=== PATIENT | female | born 1995 | race Two or more races ===

== ENCOUNTER 2017-05-20 11:20 | Emergency (ER) | payer MEDICAID ==
[~2017-05-20] VITALS: Ht 160 cm; Wt 67.1 kg
[2017-05-20 11:26] VITALS: BP 123/74
[2017-05-20] MEDS ORDERED: DEXAMETHASONE SOD PHOSPHATE 10 MG/ML VIAL IM ONE (12:30)
[2017-05-20] MEDS ORDERED: CEFTRIAXONE 1 G VIAL IM ONE (12:30)
[2017-05-20] MEDS ORDERED: DEXAMETHASONE SOD PHOSPHATE 10 MG/ML VIAL ONE (12:35)
--- NOTE | 2017-05-20 12:44 | NUR ---
Patient discharged to home in stable condition. Written and verbal after care instructions given. Patient verbalizes understanding of instruction.
== END 2017-05-20 12:45 | disposition home or self-care (01) ==
LOC: ER 11:23
DX: J02.0 Streptococcal pharyngitis (principal)
CPT/HCPCS: 96372; 99284; A4606; J1100; Z7610

== ENCOUNTER 2017-06-13 12:45 | Emergency (ER) | payer BC ==
[~2017-06-13] VITALS: Ht 160 cm; Wt 65.8 kg
--- NOTE | 2017-06-13 16:15 | NUR ---
PRESENTS TO ER C/O SORE THROAT X 2 DAYS. A/OX 4. BREATHING EVEN AND UNLABORED. NO SOB. VITALS STABLE. SAFETY AND COMFORT MEASURES IN PLACE. AWAITING MD ORDERS.
[2017-06-13] MEDS ORDERED: IBUPROFEN 600 MG TABLET PO ONE ×2 (17:00→17:05)
[2017-06-13] MEDS ORDERED: IV NS 0.9% 1,000 ML BAG IV ONE (17:00)
[2017-06-13] MEDS ORDERED: ONDANSETRON HCL/PF 4 MG/2 ML VIAL IVP ONE (17:00)
[2017-06-13] MEDS ORDERED: MORPHINE SULFATE INJ 2 MG/ML DISP.SYRIN IV ONE (17:00)
[2017-06-13] MEDS ORDERED: ONDANSETRON HCL/PF 4 MG/2 ML VIAL ONE (17:05)
[2017-06-13] MEDS ORDERED: MORPHINE SULFATE INJ 4 MG/ML DISP.SYRIN ONE (17:05)
[2017-06-13 17:21] LABS: BASOPHILS # (AUTO) 0.2 /CMM (0.0-0.2); BASOPHILS % (AUTO) 1.8 % (0.0-2.0); EOSINOPHILS # (AUTO) 0.1 /CMM (0.0-0.7); EOSINOPHILS % (AUTO) 0.9 % (0.0-6.0); HEMATOCRIT 41 % (33-45); HEMOGLOBIN 14.5 g/dL (11.5-14.8); LYMPHOCYTES # (AUTO) 0.9 /CMM (0.8-4.8); LYMPHOCYTES % (AUTO) 8.9 % (20.0-44.0); MEAN CORPUSCULAR HEMOGLOBIN 30 PG (26.0-33.0); MEAN CORPUSCULAR HGB CONC 35 g/dl (31.0-36.0); MEAN CORPUSCULAR VOLUME 86 fL (82-100); MONOCYTES # (AUTO) 0.8 /CMM (0.1-1.30); MONOCYTES % (AUTO) 7.5 % (2.0-12.0); NEUTROPHILS # (AUTO) 8.2 /CMM (1.8-8.9); NEUTROPHILS % (AUTO) 80.9 % (43.0-81.0); PLATELET COUNT (AUTO) 184 /CMM (150-450); RDW COEFFICIENT OF VARIATION 12.1 (11.5-15.0); RED BLOOD CELL COUNT(AUTO) 4.79 MIL/uL (4.0-5.2); WHITE BLOOD COUNT (AUTO) 10.2 K/uL (4.3-11.0)
[2017-06-13] MEDS ORDERED: DEXAMETHASONE SOD PHOSPHATE 10 MG/ML VIAL ONE (17:25)
[2017-06-13 17:27] LABS: CALCIUM, SERUM 9.1 mg/dL (8.5-10.1); CREATININE 0.6 mg/dL (0.6-1.3); POTASSIUM 3.8 mmol/L (3.5-5.1)
[2017-06-13] MEDS ORDERED: DEXAMETHASONE SOD PHOSPHATE 4 MG/ML VIAL IV ONE ×2 (17:30)
[2017-06-13] MEDS ORDERED: PIPERACILLIN /TAZOBACTAM 3.375 G in IV D5W 50 ML IV ONE (17:30)
[2017-06-13 17:32] LABS: INR 0.95 (0.87-1.13); PROTHROMBIN TIME 9.9 SECS (9.5-12.7)
--- NOTE | 2017-06-13 17:45 | NUR ---
PATIENT CONSENTED TO NEEDLE ASPIRATION OF PERITONSILAR ABSCESS, CONSENT FORM PLACED IN CHART.
[2017-06-13] MEDS ORDERED: PHENOL-PHENOLATE CHLORASEPTIC 177 ML SPRAY MM ONE (18:00)
[2017-06-13] MEDS ORDERED: TETRACAINE/BENZOCAINE/BUTAMBEN 56 GM SPRAY TP ONE (18:00)
--- NOTE | 2017-06-13 18:00 | NUR ---
AT BEDSIDE FOR NEEDLE ASPIRATION OF PERITONSILAR ABSCESS.
[2017-06-13 18:53] VITALS: BP 121/70
--- NOTE | 2017-06-13 18:54 | NUR ---
IV removed. Catheter intact and site benign. Pressure and 4x4 applied to site. No bleeding noted. Patient discharged to home in stable condition. Written and verbal after care instructions given. Patient verbalizes understanding of instruction.
== END 2017-06-13 18:54 | disposition home or self-care (01) ==
LOC: ER 12:48
DX: J36 Peritonsillar abscess (principal); J45.909 Unspecified asthma, uncomplicated; Z91.013 Allergy to seafood
CPT/HCPCS: 36415; 42700; 80048; 85025; 85730; 96361; 96365; 96375; 99284; A4606; J1100; J2270; J2405; J2543; J7030; J7060; Z7610

== ENCOUNTER 2017-06-16 07:15 | Emergency (ER) | payer BC ==
[~2017-06-16] VITALS: Ht 160 cm; Wt 65.8 kg
--- NOTE | 2017-06-16 07:25 | NUR ---
a/ox4, pt came to er with c/o sorethroat x wednesday. 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 pt noted with low grade fever. tachycardic. assisted to ed bed 09. rr even and unlabored. skn is warm and non diaphoretic. Pending er md evaluation
[2017-06-16] MEDS ORDERED: DEXAMETHASONE SOD PHOSPHATE 10 MG/ML VIAL IV ONE (07:30)
[2017-06-16] MEDS ORDERED: IV NS 0.9% 1,000 ML BAG IV ONE (07:30)
[2017-06-16] MEDS ORDERED: KETOROLAC TROMETHAMINE INJ 30 MG/ML VIAL IV ONE (07:30)
[2017-06-16] MEDS ORDERED: CLINDAMYCIN 600 MG in IV D5W 100 ML IV ONE (07:30)
[2017-06-16] MEDS ORDERED: DEXAMETHASONE SOD PHOSPHATE 10 MG/ML VIAL ONE (07:44)
[2017-06-16] MEDS ORDERED: KETOROLAC TROMETHAMINE 15 MG/ML VIAL ONE (07:45)
[2017-06-16 08:00] LABS: CALCIUM, SERUM 8.7 mg/dL (8.5-10.1); CREATININE 0.8 mg/dL (0.6-1.3); POTASSIUM 3.5 mmol/L (3.5-5.1)
[2017-06-16] MEDS ORDERED: CT SWABBABLE VALVE TRANS SET 1 EA INFUS.SET MC ONE (09:43)
[2017-06-16] MEDS ORDERED: IV NS 0.9% 250 ML IV ONE (09:43)
[2017-06-16] MEDS ORDERED: IOHEXOL-300 100 ML VIAL IV ONE (09:43)
--- NOTE | 2017-06-16 11:23 | NUR ---
IV removed. Catheter intact and site benign. Pressure and 4x4 applied to site. No bleeding noted.Patient discharged to home in stable condition. Written and verbal after care instructions given. Patient verbalizes understanding of instruction.
[2017-06-16 11:24] VITALS: BP 115/69
== END 2017-06-16 11:26 | disposition home or self-care (01) ==
LOC: ER 07:17
DX: J03.90 Acute tonsillitis, unspecified (principal); J45.909 Unspecified asthma, uncomplicated; Z91.013 Allergy to seafood
CPT/HCPCS: 36415; 70491; 80048; 84703; 96361; 96365; 96375; 99285; A4606; J1100; J1885; J3490; J7030; J7050; J7060; Q9967; Z7610

== ENCOUNTER 2017-06-18 07:42 | Inpatient (IN) | payer BC, OTHER ==
[~2017-06-18] VITALS: Ht 160 cm; Wt 61.7 kg
--- NOTE | 2017-06-18 00:58 | NUR ---
GARRET NOTES RECEIVED PT FROM [employer] 06/18/2017 VIA [facility] M/S AT 2100. PT IN STABLE CONDITION, NO S/S OF DISTRESS. HEAD TO TOE SKIN ASSESSMENT PT REFUSES TO REMOVED PANTS AND SHIRT DESPITE RISKS AND BENEFITS OFFERED 3 TIMES STILL REFUSES M[employer]D [employer] C[employer] TECHNICIAN MADE AWARE. UNABLE TO ASSESS ENTIRE BODY PER PT SHE DOESNT HAVE ANY WOUNDS OTHER THAN HER FACE AND HER NECK PT STATED THAT SHE HAS HER PERIOD SAFETY MEASURES ARE IN PLACE, CALL LIGHT IS IN REACH. WILL CONTINUE TO MONITOR. ON ATB NO A/R NOTED Addendum: 06/19/17 at 0103 by NATHAN OLIVER RN THIS ENTRY DOCUMENTATION IS FOR 06/19/16 0102 Addendum: 06/19/17 at 0104 by NATHAN OLIVER RN ADDENDUM: CORRECTION: THIS ENTRY DOCUMENTATION IS FOR 06/19/2017 AT 0102
[2017-06-18 10:13] LABS: BASOPHILS % (AUTO) 0.4 % (0.0-2.0); EOSINOPHILS % (AUTO) 0.1 % (0.0-6.0); HEMATOCRIT 41 % (33-45); LYMPHOCYTES # (AUTO) 1.2 /CMM (0.8-4.8); LYMPHOCYTES % (AUTO) 11.6 % (20.0-44.0); MEAN CORPUSCULAR HEMOGLOBIN 29 PG (26.0-33.0); MEAN CORPUSCULAR HGB CONC 35 g/dl (31.0-36.0); MEAN CORPUSCULAR VOLUME 85 fL (82-100); MONOCYTES # (AUTO) 0.9 /CMM (0.1-1.30); NEUTROPHILS # (AUTO) 8.2 /CMM (1.8-8.9); NEUTROPHILS % (AUTO) 78.9 % (43.0-81.0); PLATELET COUNT (AUTO) 213 /CMM (150-450); RDW COEFFICIENT OF VARIATION 11.7 (11.5-15.0); WHITE BLOOD COUNT (AUTO) 10.3 K/uL (4.3-11.0)
[2017-06-18 11:11] LABS: MONOTEST NEGATIVE (NEGATIVE)
[2017-06-18 12:31] LABS: APPEARANCE,URINE Clear (CLEAR); BILIRUBIN,URINE Negative (NEGATIVE); BLOOD, URINE Large Ery/uL (NEGATIVE); COLOR,URINE Yellow (YELLOW); KETONES,URINE Trace (NEGATIVE); LEUKOCYTE ESTERASE ,URINE Small (NEGATIVE); NITRITE, URINE Negative (NEGATIVE); PROTEIN,URINE Negative (NEGATIVE); UGLUCOSE Negative (NEGATIVE); UROBILINOGEN,URINE 0.2 EU/dL (0.2)
[2017-06-18 12:38] LABS: BACTERIA,URINE Rare /HPF (None Seen); RBC,URINE 51-80 /HPF (0-2); SQUAMOUS EPITHELIAL CELL,UR Few /HPF (None Seen)
[2017-06-18] MEDS ORDERED: AZITHROMYCIN 250 MG TABLET PO ONE (13:30)
[2017-06-18] MEDS ORDERED: PENICILLIN G BENZATHINE 2.4 MMU/4 ML ML IM ONE ×3 (13:30→15:57)
[2017-06-18] MEDS ORDERED: IBUP-1955 PO (14:51)
[2017-06-18] MEDS ORDERED: CLIN300C11 PO (14:51)
[2017-06-18] MEDS ORDERED: AZITHROMYCIN 250 MG TABLET ONE ×2 (15:49→15:56)
[2017-06-18] MEDS ORDERED: HYDROCODONE/APAP 10/325MG 1 EA TABLET PO PRN (16:00)
[2017-06-18] MEDS ORDERED: ZOLPIDEM TARTRATE 5 MG TABLET PO PRN (16:00)
[2017-06-18] MEDS ORDERED: Z GUARD REMEDY 2 OZ OINT TP PRN (16:00)
[2017-06-18] MEDS ORDERED: ACETAMINOPHEN 325 MG TABLET PO PRN (16:00)
[2017-06-18] MEDS ORDERED: MAGNESIUM HYDROXIDE 30 ML UDC PO PRN (16:00)
[2017-06-18] MEDS ORDERED: MAG HYDROX/AL HYDROX/SIMETH 30 ML UDC PO PRN (16:00)
[2017-06-18] MEDS ORDERED: HYDROCODONE/APAP 5/325MG 1 EACH TABLET PO PRN (16:00)
[2017-06-18] MEDS ORDERED: ONDANSETRON HCL/PF 4 MG/2 ML VIAL IVP PRN (16:00)
--- NOTE | 2017-06-18 20:45 | NUR ---
REPORT GIVEN TO [place]. PT AWAITING TRANSFER TO FLOOR.
[2017-06-18 21:05] VITALS: BP 107/66
[2017-06-18] MEDS ORDERED: CEFTRIAXONE 1 G VIAL ONE (21:52)
[2017-06-18] MEDS: CEFTRIAXONE 1 G in IV D5W 50 ML IV SCH (22:08)
[2017-06-18] MEDS ORDERED: ACYCLOVIR IV 1 GM/20 ML VIAL IV ONE (23:03)
[2017-06-18] MEDS: ACYCLOVIR IV SCH (23:54)
[2017-06-18] MEDS: D5W IV SCH (23:54)
--- NOTE | 2017-06-19 01:02 | NUR ---
RN NOTES RECEIVED PT FROM [facility] [facility] 06/18/2017 VIA [facility] ADMIT M/S AT 2100. PT IN STABLE CONDITION, NO S/S OF DISTRESS. 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 UNABLE TO ASSESS ENTIRE BODY PER PT SHE DOESNT HAVE ANY WOUNDS OTHER THAN HER FACE AND HER NECK PT STATED THAT SHE HAS HER PERIOD SAFETY MEASURES ARE IN PLACE, CALL LIGHT IS IN REACH. WILL CONTINUE TO MONITOR. ON ATB NO A/R NOTED
[2017-06-19] MEDS: D5W IV SCH ×3 (05:06→22:41)
[2017-06-19] MEDS: ACYCLOVIR IV SCH ×3 (05:06→22:41)
--- NOTE | 2017-06-19 06:30 | NUR ---
MS RN CLOSING NOTES AWAKE IN BED, RESPIRATIONS EVEN AND UNLABORED. NOT IN S/S DISTRESS. 02 SAT WNL STABLE CONDITION. KEPT CLEAN AND DRY AND COMFORTABLE, ALL NURSING CARE RENDERED. NEEDS ATTENDED AND ANTICIPATED, FREQUENT VISUAL CHECK DONE FOR SAFETY EVERY 2 HOURS. ON LOW BED AT ALL TIMES TO ENSURE SAFETY. SAFE HAZARD FREE ENVIRONMENT PROVIDED. CALL LIGHT WITHIN EASY TO REACH. WILL ENDORSE NEXT SHIFT CONTINUITY OF CARE
--- NOTE | 2017-06-19 07:30 | NUR ---
RN OPENING NOTES RECEIVED PT. IN BED A&OX4. BREATHING UNLABORED, AND EVENLY ON ROOM AIR. NO S/S OF ACUTE DISTRESS. IV FLUIDS AT BEDSIDE. BED IS IN LOWEST, AND LOCKED POSITION. W SIDE RAILS UP, AND INSTRUCTED PT. TO USE CALL LIGHT FOR ASSISTANCE. ALL NEEDS MET. WILL CONTINUE TO ASSESS AND MONITOR.
[2017-06-19 08:00] VITALS: BP_SYST 111; BP_SYST 139; BP_DIAS 63; BP_DIAS 72
[2017-06-19 08:01] LABS: BASOPHILS % (AUTO) 0.2 % (0.0-2.0); EOSINOPHILS % (AUTO) 0.1 % (0.0-6.0); HEMATOCRIT 38 % (33-45); HEMOGLOBIN 13.3 g/dL (11.5-14.8); LYMPHOCYTES # (AUTO) 1.6 /CMM (0.8-4.8); LYMPHOCYTES % (AUTO) 17.8 % (20.0-44.0); MEAN CORPUSCULAR HEMOGLOBIN 30 PG (26.0-33.0); MEAN CORPUSCULAR HGB CONC 35 g/dl (31.0-36.0); MEAN CORPUSCULAR VOLUME 85 fL (82-100); MONOCYTES # (AUTO) 1.1 /CMM (0.1-1.30); MONOCYTES % (AUTO) 12.2 % (2.0-12.0); NEUTROPHILS # (AUTO) 6.1 /CMM (1.8-8.9); NEUTROPHILS % (AUTO) 69.7 % (43.0-81.0); PLATELET COUNT (AUTO) 198 /CMM (150-450); RDW COEFFICIENT OF VARIATION 12.6 (11.5-15.0); RED BLOOD CELL COUNT(AUTO) 4.49 MIL/uL (4.0-5.2); WHITE BLOOD COUNT (AUTO) 8.8 K/uL (4.3-11.0)
[2017-06-19 08:20] LABS: ALBUMIN 3.4 g/dL (3.4-5.0); BILIRUBIN,TOTAL 0.3 mg/dL (0.2-1.0); CALCIUM, SERUM 8.7 mg/dL (8.5-10.1); CREATININE 0.7 mg/dL (0.6-1.3); MAGNESIUM 2.3 mg/dL (1.8-2.4); PHOSPHORUS 3.8 mg/dL (2.5-4.9); POTASSIUM 3.7 mmol/L (3.5-5.1)
[2017-06-19 08:29] LABS: THYROID STIMULATING HORMONE 1.572 uIU/mL (0.358-3.74)
--- NOTE | 2017-06-19 09:00 | NUR ---
RN NOTES PT. C/O DISCOMFORT, IRRITATION, ITCHING AND BURNING ON URINATION. NOTIFIED MEDICINE TECH, AND ORDER WAS GIVEN FOR A URINE ANALYSIS.
--- NOTE | 2017-06-19 10:00 | NUR ---
RN NOTES PT. C/O LEFT WRIST TENDERNESS AT IV ACCESS SITE. IV WAS REMOVED AND A NEW IV WAS INSERTED ON RIGHT FOREARM GAUGE 22. IV IS PATENT AND FLUSHED WITH NORMAL SALINE.
--- NOTE | 2017-06-19 10:15 | NUR ---
RN NOTES URINE COLLECTED CLEAN CATCH BY PT. FOR URINE ANALYSIS WITHOUT COMPLICATIONS. CALLED LAB TO NOTIFY URINE SAMPLE IS AVAILABLE.
[2017-06-19 11:32] LABS: APPEARANCE,URINE CLEAR (CLEAR); BILIRUBIN,URINE NEGATIVE (NEGATIVE); BLOOD, URINE 2+ Ery/uL (NEGATIVE); COLOR,URINE YELLOW (YELLOW); KETONES,URINE NEGATIVE (NEGATIVE); LEUKOCYTE ESTERASE ,URINE 1+ (NEGATIVE); NITRITE, URINE NEGATIVE (NEGATIVE); PROTEIN,URINE NEGATIVE (NEGATIVE); UGLUCOSE NEGATIVE (NEGATIVE); UROBILINOGEN,URINE 0.2 EU/dL (0.2)
[2017-06-19 11:56] LABS: BACTERIA,URINE Rare /HPF (None Seen); SQUAMOUS EPITHELIAL CELL,UR Few /HPF (None Seen)
[2017-06-19 16:00] VITALS: BP 109/67
--- NOTE | 2017-06-19 19:45 | NUR ---
RN CLOSING NOTES PT. IN BED A&OX4. BREATHING UNLABORED, AND EVENLY ON ROOM AIR. NO S/S OF ACUTE DISTRESS. IV FLUIDS AT BEDSIDE. RIGHT FOREARM IV ACCESS IS INTACT. BED IS IN LOWEST, AND LOCKED POSITION. W SIDE RAILS UP, AND INSTRUCTED PT. TO USE CALL LIGHT FOR ASSISTANCE. ALL NEEDS MET. WILL ENDORSE REPORT TO NURSE.
--- NOTE | 2017-06-19 19:50 | NUR ---
RN OPENING NOTES PT RESTING IN BED. MOTHER AT BEDSIDE. NO COMPLAINTS OF PAIN OR SOB AT THIS TIME. PT HAS RIGHT FOREARM IV INTACT AND PATENT. SAFETY PRECAUTIONS IN PLACE. BED IN LOW, LOCKED POSITION AND 2X SIDE RAILS UP. CALL LIGHT WITHIN REACH. WILL CONTINUE TO MONITOR.
--- NOTE | 2017-06-19 19:50 | NUR ---
RN NOTES CALLED DR. DOMINGO TO NOTIFY THAT PT. HAS BEEN C/O DISCOMFORT, IRRITATION, WITH YEAST INFECTION LIKE SYMPTOMS. NEW ORDER WAS GIVEN FOR DIFLUCAN 150 MG PO ONCE.
[2017-06-19 20:00] VITALS: BP 114/68
[2017-06-19] MEDS: CEFTRIAXONE 1 G in IV D5W 50 ML IV SCH (21:03)
[2017-06-19] MEDS ORDERED: FLUCONAZOLE (100 MG) 100 MG TABLET PO ONE (22:30)
[2017-06-20] MEDS: D5W IV SCH ×3 (05:37→20:37)
[2017-06-20] MEDS: ACYCLOVIR IV SCH ×3 (05:37→20:37)
--- NOTE | 2017-06-20 07:10 | NUR ---
RN NOTES PT IS LAYING DOWN IN BED SLEEPING, NO SIGNS OF DISTRESS NOTED. PT ON RA, RESPIRATIONS ARE EVEN AND UNLABORED. IV ON RFA INTACT AND SL. SAFETY MEASURES ARE IN PLACE, CALL LIGHT IS IN REACH. WILL CONTINUE TO MONITOR.
--- NOTE | 2017-06-20 07:32 | NUR ---
RN CLOSING NOTES PT RESTING IN BED. NO COMPLAINTS OF PAIN OR SOB AT THIS TIME. PT HAS RIGHT FOREARM IV INTACT AND PATENT. SAFETY PRECAUTIONS IN PLACE. BED IN LOW, LOCKED POSITION AND 2X SIDE RAILS UP. CALL LIGHT WITHIN REACH. WILL ENDORSE TO DAY SHIFT NURSE FOR CONTINUITY OF CARE.
[2017-06-20 08:00] VITALS: BP 97/53
[2017-06-20] MEDS: LORATADINE 10 MG TABLET PO SCH (08:38)
[2017-06-20 16:00] VITALS: BP 109/65
--- NOTE | 2017-06-20 18:51 | NUR ---
RN NOTES PT IS RESTING IN BED COMFORTABLY, NO SIGNS OF DISTRESS NOTED. PT ON RA, RESPIRATIONS ARE EVEN AND UNLABORED. IV ON L HAND INTACT AND SL. ALL MEDS WERE GIVEN ORDERED AND PT NEEDS MET. PT HAS NO COMPLAINTS OF PAIN. SAFETY MEASURES ARE IN PLACE, CALL LIGHT IS IN REACH. WILL ENDORSE TO [employer]PL[employer]S DIVISION DIRECTOR RN FOR CONTINUITY OF CARE.
--- NOTE | 2017-06-20 19:25 | NUR ---
RN OPENING NOTES RECEIVED PATIENT IN BED, ALERT AND ORIENTED X 4, VERBALLY RESPONSIVE, ABLE TO MAKE NEEDS KNOWN, NOTED WITH NO SOB, BREATHING EVEN AND UNLABORED, IN NO ACUTE DISTRESS, PLACED CALL LIGHT WITHIN REACH. ALL PATIENT'S NEEDS ATTENDED TO. WILL CONTINUE TO MONITOR PT.
[2017-06-20 20:00] VITALS: BP 115/55
[2017-06-20 20:43] VITALS: BP 151/67
[2017-06-20] MEDS ORDERED: DOXYCYCLINE 100 MG in IV D5W 100 ML IV SCH (22:00)
--- NOTE | 2017-06-20 22:35 | NUR ---
RN NOTES RECEIVED NEW ORDERS FROM PHARMACY, PER ID RECOMMENDATION, TO DOSE VANCOMYCIN 1 GM IV X 1 DOSE AND PHARMACY TO CONTINUE DOSING IN THE AM. ALL ORDERS NOTED AND CARRIED OUT.
[2017-06-20] MEDS ORDERED: VANCOMYCIN 1 GM VIAL ONE (23:17)
[2017-06-20] MEDS ORDERED: VANCOMYCIN 1 GM in IV D5W 250 ML IV ONE (23:30)
[2017-06-20] MEDS ORDERED: DOXYCYCLINE 100 MG VIAL ONE (23:45)
--- NOTE | 2017-06-21 04:00 | NUR ---
RN NOTE INSERTED A NEW IV PERIPHERAL LINE G#22 ON PT'S RIGHT HAND. PATIENT TOLERATED PROCEDURE WELL. FLUSHED WITH SALINE, PATENT AND INTACT. WILL CONTINUE TO MONITOR.
[2017-06-21] MEDS: ACYCLOVIR IV SCH ×3 (04:57→20:42)
[2017-06-21] MEDS: D5W IV SCH ×3 (04:57→20:42)
--- NOTE | 2017-06-21 07:25 | NUR ---
RN CLOSING NOTES PATIENT IN BED, ASLEEP BUT EASILY AROUSABLE, ALERT AND ORIENTED X 4, NO SOB NOTED, BREATHING EVEN AND UNLABORED AND IS IN NO ACUTE DISTRESS. ALL PATIENT'S NEEDS ATTENDED TO. BED PLACED IN LOW POSITION AND LOCKED IN PLACE. CALL LIGHT PLACED WITHIN EASY REACH. WILL ENDORSE TO MORNING SHIFT NURSE FOR CONTINUITY OF CARE.
--- NOTE | 2017-06-21 07:35 | NUR ---
RN OPENING NOTES RECEIVED PT. IN BED A&OX4. BREATHING UNLABORED, AND EVENLY ON ROOM AIR. NO S/S OF ACUTE DISTRESS. IV FLUIDS AT BEDSIDE. BED IS IN LOWEST, AND LOCKED POSITION. 2 SIDE RAILS UP, AND INSTRUCTED PT. TO USE CALL LIGHT FOR ASSISTANCE. ALL NEEDS MET. WILL CONTINUE TO ASSESS AND MONITOR.
--- NOTE | 2017-06-21 07:55 | NUR ---
WOUND CARE CONSULT WOUND CARE RECEIVED CONSULT. WILL DEFER TO MD AND ID AT THIS TIME FOR FACIAL BLISTERS. PATIENT WITH DIDI AT 22. DISCUSSED WITH NURSING STAFF.
[2017-06-21 08:00] VITALS: BP 94/58
[2017-06-21] MEDS: LORATADINE 10 MG TABLET PO SCH (09:21)
[2017-06-21] MEDS ORDERED: FEE PK DOSING 1 MIN EA MC ONE (09:46)
[2017-06-21] MEDS ORDERED: PIPERACILLIN /TAZOBACTAM 3.375 G in IV D5W 50 ML IV SCH (10:00)
[2017-06-21 12:08] LABS: *HIV-1 RNA BY PCR <20 copies/mL (.)
[2017-06-21] MEDS: VANCOMYCIN 1 GM in IV D5W 250 ML IV SCH ×2 (12:32→19:15)
[2017-06-21] MEDS: DOXYCYCLINE 100 MG in IV D5W 100 ML IV SCH ×2 (13:52→21:52)
[2017-06-21 16:00] VITALS: BP 94/64
--- NOTE | 2017-06-21 19:00 | NUR ---
RN NOTES A/O X 4, PT IN STABLE CONDITION, NO S/S OF DISTRESS. SAFETY MEASURES ARE IN PLACE, CALL LIGHT IS IN REACH. WILL CONTINUE TO MONITOR.
--- NOTE | 2017-06-21 19:00 | NUR ---
RN CLOSING NOTES PT. IN BED A&OX4 SITTING UP. BREATHING UNLABORED, AND EVENLY ON ROOM AIR. NO S/S OF ACUTE DISTRESS. IV ANTIBIOTICS RUNNING ON NEW LEFT ANTECUBITAL IV SITE. BED IS IN LOWEST, AND LOCKED POSITION. 2 SIDE RAILS UP, AND INSTRUCTED PT. TO USE CALL LIGHT FOR ASSISTANCE. ALL NEEDS MET. WILL ENDORSE REPORT TO NURSE.
[2017-06-21 20:00] VITALS: BP 98/58
[2017-06-21] MEDS: PIPERACILLIN /TAZOBACTAM 3.375 G in IV D5W 50 ML IV SCH (20:04)
[2017-06-22] MEDS: PIPERACILLIN /TAZOBACTAM 3.375 G in IV D5W 50 ML IV SCH ×4 (00:32→19:20)
[2017-06-22] MEDS: VANCOMYCIN 1 GM in IV D5W 250 ML IV SCH ×3 (01:26→18:02)
[2017-06-22] MEDS: ACYCLOVIR IV SCH ×3 (04:14→20:10)
[2017-06-22] MEDS: D5W IV SCH ×3 (04:14→20:10)
--- NOTE | 2017-06-22 06:26 | NUR ---
MS RN CLOSING NOTES ASLEEP IN BED AND EASILY AWAKEN, RESPIRATIONS EVEN AND UNLABORED. NOT IN S/S DISTRESS. TOLERATING ROOM AIR 97% STABLE CONDITION. KEPT CLEAN AND DRY AND COMFORTABLE, ALL NURSING CARE RENDERED. NEEDS ATTENDED AND ANTICIPATED, FREQUENT VISUAL CHECK DONE FOR SAFETY EVERY 2 HOURS. ON LOW BED AT ALL TIMES TO ENSURE SAFETY. SAFE HAZARD FREE ENVIRONMENT PROVIDED. CALL LIGHT WITHIN EASY TO REACH. WILL ENDORSE NEXT SHIFT CONTINUITY OF CARE. ON ATB WITH NO A/R NOTED
[2017-06-22 08:00] VITALS: BP 104/61
--- NOTE | 2017-06-22 08:00 | NUR ---
RN OPENING NOTES RECEIVED PT. IN BED A&OX4. BREATHING UNLABORED, AND EVENLY ON ROOM AIR. NO S/S OF ACUTE DISTRESS. IV FLUIDS AT BEDSIDE, IV ACCESS INTACT ON LEFT ANTECUBITAL SITE. BED IS IN LOWEST, AND LOCKED POSITION. 2 SIDE RAILS UP, AND INSTRUCTED PT. TO USE CALL LIGHT FOR ASSISTANCE. ALL NEEDS MET. WILL CONTINUE TO ASSESS AND MONITOR.
[2017-06-22] MEDS: DOXYCYCLINE 100 MG in IV D5W 100 ML IV SCH (09:02)
[2017-06-22] MEDS: LORATADINE 10 MG TABLET PO SCH (09:24)
[2017-06-22 09:31] LABS: BASOPHILS % (AUTO) 0.5 % (0.0-2.0); EOSINOPHILS % (AUTO) 3.3 % (0.0-6.0); HEMATOCRIT 38 % (33-45); LYMPHOCYTES % (AUTO) 25.8 % (20.0-44.0); MEAN CORPUSCULAR HEMOGLOBIN 30 PG (26.0-33.0); MEAN CORPUSCULAR HGB CONC 34 g/dl (31.0-36.0); MEAN CORPUSCULAR VOLUME 87 fL (82-100); MONOCYTES % (AUTO) 8.1 % (2.0-12.0); NEUTROPHILS % (AUTO) 62.3 % (43.0-81.0); PLATELET COUNT (AUTO) 215 /CMM (150-450); RDW COEFFICIENT OF VARIATION 12.8 (11.5-15.0); RED BLOOD CELL COUNT(AUTO) 4.41 MIL/uL (4.0-5.2); WHITE BLOOD COUNT (AUTO) 7.2 K/uL (4.3-11.0)
[2017-06-22 09:32] LABS: EOSINOPHILS # (AUTO) 0.2 /CMM (0.0-0.7); LYMPHOCYTES # (AUTO) 1.8 /CMM (0.8-4.8); MONOCYTES # (AUTO) 0.6 /CMM (0.1-1.30); NEUTROPHILS # (AUTO) 4.5 /CMM (1.8-8.9)
[2017-06-22 10:07] LABS: CREATININE 0.8 mg/dL (0.6-1.3); POTASSIUM 4.1 mmol/L (3.5-5.1)
[2017-06-22 16:00] VITALS: BP 104/61
--- NOTE | 2017-06-22 19:00 | NUR ---
RN NOTES A/O X 4, SITTING IN BED, PT IN STABLE CONDITION, NO S/S OF DISTRESS. SAFETY MEASURES ARE IN PLACE, CALL LIGHT IS IN REACH. WILL CONTINUE TO MONITOR.
[2017-06-22 20:00] VITALS: BP 107/56
[2017-06-22] MEDS: DOXYCYCLINE HYCLATE (100 MG) 100 MG TABLET PO SCH (20:31)
[2017-06-23] MEDS: PIPERACILLIN /TAZOBACTAM 3.375 G in IV D5W 50 ML IV SCH ×4 (00:17→19:00)
[2017-06-23] MEDS: VANCOMYCIN 1 GM in IV D5W 250 ML IV SCH ×3 (01:03→17:06)
[2017-06-23] MEDS: D5W IV SCH ×2 (04:19→12:11)
[2017-06-23] MEDS: ACYCLOVIR IV SCH ×2 (04:19→12:11)
--- NOTE | 2017-06-23 06:28 | NUR ---
MS RN CLOSING NOTES ASLEEP AND EASILY AWAKEN, STABLE CONDITION. TOLERATING ROOM AIR 02 SAT 98% KEPT CLEAN AND DRY AND COMFORTABLE, ALL NURSING CARE RENDERED. NEEDS ATTENDED AND ANTICIPATED, FREQUENT VISUAL CHECK DONE FOR SAFETY EVERY 2 HOURS. ON LOW BED AT ALL TIMES TO ENSURE SAFETY. SAFE HAZARD FREE ENVIRONMENT PROVIDED. CALL LIGHT WITHIN EASY TO REACH. WILL ENDORSE NEXT SHIFT CONTINUITY OF CARE.
[2017-06-23 07:03] LABS: POTASSIUM 3.8 mmol/L (3.5-5.1)
--- NOTE | 2017-06-23 07:33 | NUR ---
MS RN OPENING NOTES. RECEIVED PT ASLEEP IN BED, AROUSABLE EASILY. HOB ELEVATED. A/O X4, VERBALLY RESPONSIVE, DENIES ANY PAIN OR DISCOMFORTS AT THIS TIME. ON ROOM AIR, TOLERATING WELL WITH NO SOB NOTED. IV ACCESS ON LEFT AC G#22 INTACT AND PATENT. BED IN LOWEST AND LOCKED POSITION WITH SIDE-RAILS UP X2. CALL HE WITHIN REACH. WILL CONTINUE TO MONITOR ACCORDINGLY.
[2017-06-23 08:02] VITALS: BP 101/55
[2017-06-23] MEDS: LORATADINE 10 MG TABLET PO SCH (09:23)
[2017-06-23] MEDS: DOXYCYCLINE HYCLATE (100 MG) 100 MG TABLET PO SCH (09:23)
[2017-06-23] MEDS ORDERED: ACYC800T PO (14:38)
[2017-06-23 15:13] LABS: CMV, IgM <30.0 AU/mL (0.0-29.9)
[2017-06-23 16:00] VITALS: BP 98/52
--- NOTE | 2017-06-23 18:57 | NUR ---
RN DISCHARGED NOTES PATIENT DISCHARGED HOME IN STABLE CONDITION. A/O 4, SAME VERBALLY RESPONSIVE. SHE LEFT UNIT AT 1850 AMBULATORY ACCOMPANIED BY FAMILY. NO SIGNS OF DISTRESS NOTED DURING DISCHARGE. V/S TAKEN AND RECORDED. PHOTOS OF SKIN TAKEN AND FILED ON CHART. BELONGINGS CHECKED, COUNTED AND SIGNED FORM. PT REFUSED PNEUMO AND FLU VACCINES DESPITE ENCOURAGEMENT AND EXPLAINING THE BENEFITS OF RECEIVING THEM. EXIT CARE REVIEWED WITH PT. HEALTH TEACHINGS GIVEN AND VERBALIZED UNDERSTANDING. ALL APPROPRIATE DISCHARGE PAPERS SIGNED AND FILED IN CHART. MD AND CHARGE NURSE AWARE OF DISCHARGE.
[2017-06-24 08:09] LABS: VARICELLA ZOSTER IgG 372 index (Immune >165)
== END 2017-06-23 19:00 | disposition home or self-care (01) | DRG 723 ==
LOC: ER 07:52 → MED 20:46
PROVIDERS: ADMIT Nurse Practitioner Acute Care; ATTEND Nurse Practitioner Acute Care
DX: B02.7 Disseminated zoster (principal); N39.0 Urinary tract infection, site not specified; J03.90 Acute tonsillitis, unspecified; Z91.013 Allergy to seafood; J45.909 Unspecified asthma, uncomplicated; L30.9 Dermatitis, unspecified; Z83.3 Family history of diabetes mellitus; Z80.6 Family history of leukemia
CPT/HCPCS: 36415; 80048-TC; 80053-TC; 80061-TC; 80074; 80202-TC; 81000-TC; 83735-TC; 84100-TC; 84443-TC; 84703-TC; 85025-TC; 86308-TC; 86403-TC; 86592; 86644; 86645; 86694; 86695; 86696; 86787; 87070-TC; 87081-TC; 87086-TC; 87491; 87536; 87591; 87899; A4606; J0133; J0558; J0696; J2543; J3370; J3490; J7030; J7050; J7060; Z7610

== ENCOUNTER 2017-11-08 07:03 | Emergency (ER) | payer BC, OTHER ==
[~2017-11-08] VITALS: Ht 165.1 cm; Wt 63.0 kg
[~2017-11-08 07:03] MED LIST: ACYC800T PO
--- NOTE | 2017-11-08 07:07 | NUR ---
BBRA 39; ETOH INTOXICATION. DROP OFF BY UBER GREASE PACKER AT POLICE STATION COULDNT WAKE PT UP. PLACED ON MONITOR. AWAITING MD ORDER.
--- NOTE | 2017-11-08 07:15 | NUR ---
PT ALERT ORIENTED AMBULATORY ON STEADY GAIT.
--- NOTE | 2017-11-08 09:00 | NUR ---
Patient is resting comfortably in bed with eyes closed. Easily aroused. VSS
--- NOTE | 2017-11-08 11:00 | NUR ---
Pt ambulatory with a steady gait.
--- NOTE | 2017-11-08 11:09 | NUR ---
TRIED CALLING PT'S MOTHER, JAY, NO ANSWER ON PHONE.
--- NOTE | 2017-11-08 11:27 | NUR ---
PT WAITING FOR HER COUSIN FOR PICK-UP.
--- NOTE | 2017-11-08 12:05 | NUR ---
Patient discharged to home in stable condition. Written and verbal after care instructions given. Patient verbalizes understanding of instruction.
[2017-11-08 12:06] VITALS: BP 96/55
== END 2017-11-08 12:06 | disposition home or self-care (01) ==
LOC: ER 07:05
DX: F10.129 Alcohol abuse with intoxication, unspecified (principal); Z91.013 Allergy to seafood
CPT/HCPCS: A4606